=== PATIENT | female | born 1985 | race African-American/Black ===

== ENCOUNTER 2018-11-23 20:12 | Emergency (ER) | payer MEDICAID, OTHER ==
[~2018-11-23] VITALS: Ht 165.1 cm; Wt 95.3 kg
[~2018-11-23 20:12] MED LIST: AMOXICILLIN500 MG PO; NKM; TRAMADOL HCL50 MG ORAL
--- NOTE | 2018-11-23 20:22 | NUR ---
ED Nurse Note: pt walked in c/c active labor and contractions, pt states she is 37 wks , this is her 5th . Pt states all her was vaginal delivery but last she had preeclampsia. pt denies having any medical hx r/t at this time, pt states she has been taking , denies smoking, using illegal drugs, drinking alcohol. heart rate noted 135, ERMD notified. expected due date december 10 G 5 T 1 P 1 A 1 L 2
--- NOTE | 2018-11-23 20:25 | Emergency Room Report ---
History of Present Illness General Chief Complaint: Active Labor Source: Patient Present Illness HPI Patient is a 33-year-old female presented after increased lower abdominal pain. Patient ports of increased sharp pain which feel like contractions. Patient a prior history of and is currently G3 at approximately 37 weeks. Patient states she had prior history of preeclampsia. She supposed to deliver at [facility] her MEDICAL CLERICAL ASSISTANT is Dr. Barraza. Patient was having leakage of fluid since last night. She had recent hospitalization at [facility] [place].Denies any vaginal bleeding. She reports intermittent abdominal pain lasting approximately 1 minute a time. Allergies: Coded Allergies: No Known Allergies (Unverified , 02/21/13) Patient History Past Medical History: see triage record Now: Yes : 5 Para: 2 Reviewed Nursing Documentation: PMH: Agreed; PSxH: Agreed Nursing Documentation-PMH Past Medical History: No Stated History Hx Cardiac Problems: No Hx Cancer: No Hx Gastrointestinal Problems: Yes - Gallbladder removed 2011 Hx Neurological Problems: No Review of Systems All Other Systems: negative except mentioned in HPI Physical Exam Vital Signs Date Time Temp Pulse Resp B/P (MAP) Pulse Ox O2 Delivery O2 Flow Rate FiO2 11/23/18 20:17 98.1 91 16 130/91 (104) 99 Room Air Sp02 EP Interpretation: reviewed, normal General Appearance: normal inspection, well appearing, no apparent distress, alert, GCS 15, moderate distress Head: atraumatic ENT: normal ENT inspection, hearing grossly normal, normal voice Neck: normal inspection, full range of motion, supple, no bony tend Respiratory: normal inspection, lungs clear, normal breath sounds, no respiratory distress, no retraction, no wheezing Cardiovascular #1: regular rate, rhythm, no edema Gastrointestinal: soft, no guarding, no hernia, other - gravid uterus Genitourinary: no CVA tenderness, other - 2cm cervical dilation Musculoskeletal: normal inspection, back normal, normal range of motion Neurologic: normal inspection, alert, oriented x3, responsive, extrusion former III-XII nml as tested, speech normal Psychiatric: normal inspection, judgement/insight normal, mood/affect normal Medical Decision Making Diagnostic Impression: Primary Impression: Abdominal pain Additional Impressions: Pain during labor Term ER Course Patient presented for abdominal cramping and pain. Patient was noted to have a prior history of preeclampsia. Exam showed some slight amount of cervical dilation which was approximately 2 cm. Patient is not actively bleeding.Patient be transferred to [facility] for labor and delivery. heartbeat is 135.Patient appears to be in early labor and still stable for transfer.Patient was discussed with Dr. Chavarria at [facility] labor and delivery for transfer for higher level care. She agreed to accept the patient. Patient be transported via 911 due to emergency medical condition. Last Vital Signs Date Time Temp Pulse Resp B/P (MAP) Pulse Ox O2 Delivery O2 Flow Rate FiO2 11/23/18 20:17 98.1 91 16 130/91 (104) 99 Room Air Status: unchanged Disposition: XFER SHT-TRM HOSP Condition: Serious Referrals: [facility] (PCP) Esau Montgomery MD Nov 23, 2018 20:25
[2018-11-23 20:44] VITALS: BP 132/80
[2018-11-23 20:48] VITALS: BP 132/80
--- NOTE | 2018-11-23 20:48 | NUR ---
ED Nurse Note: 911 AT THE BEDSIDE, TRANSFERRING PT TO [facility] L&D, REPORT GIVEN TO MANA DIAMOND FROM [facility], PT VSS, IV INTACT AND PATENT, LEFT W/ ALL BELONGINGS. CONTRACTIONS 2 MIN-4MIN DURATION 30SEC.
== END 2018-11-23 20:48 | disposition short-term general hospital (02) ==
LOC: EMR 20:19
DX: O26.93 Pregnancy related conditions, unspecified, third trimester (principal); R10.30 Lower abdominal pain, unspecified; Z68.37 Body mass index [BMI] 37.0-37.9, adult; Z90.49 Acquired absence of other specified parts of digestive tract
CPT/HCPCS: 99285